=== PATIENT | female | born 1980 | race Caucasian/White ===

== ENCOUNTER 2020-08-09 21:00 | Inpatient (IN) | payer BC ==
[~2020-08-09] VITALS: Ht 177.8 cm; Wt 106.0 kg
[2020-08-09 21:30] VITALS: BP 122/76
[2020-08-09] MEDS ORDERED: RISP1TAB13 PO (21:34)
[2020-08-09] MEDS ORDERED: loperamide 2mg capsule PO PRN (21:35)
[2020-08-09] MEDS ORDERED: acetaminophen 325mg tablet PO PRN ×2 (21:35)
[2020-08-09] MEDS ORDERED: magnesium hydroxide 30ml (MOM) UD suspension PO PRN (21:35)
[2020-08-09] MEDS ORDERED: LORazepam 1 MG tablet PO PRN (21:35)
[2020-08-09] MEDS ORDERED: mag hydrox/Alum hydrox/simeth 30ml oral suspension PO PRN (21:35)
--- NOTE | 2020-08-09 22:09 | NUR ---
Admission note: Pt arrived on [facility] unit on 08/09/20 at 2110 for DTS. Pt attempted to kill herself by overdosing on Wellbutrin because she believed someone was going to take away her children. She believes she is being watched and that her phone and house are bugged. Pt calm and cooperative with admission process, declined a shower.
[2020-08-09] MEDS ORDERED: risperiDONE 0.5mg tablet PO SCH (22:23)
[2020-08-10 07:59] LABS: HEMOGLOBIN A1C 5.1 % (4.5-6.2)
[2020-08-10 08:00] VITALS: BP 114/81
[2020-08-10 08:24] LABS: CHOL/HDL RATIO 3.2 (0.00-4.99); CHOLESTEROL 120 MG/DL (0-200); HDL CHOLESTEROL 38 MG/DL (35-60); LDL CHOLESTEROL 65 MG/DL (50-100); TRIGLYCERIDES 74 MG/DL (20-135)
--- NOTE | 2020-08-10 13:21 | NUR ---
Pt. attended group today. The topic today was Hearing Voices. We discussed what it was like for each pt. that does hear voices and spent most of the session talking about the Coping Skills they utilize to help them distract, relax, problem solve, and care for themselves appropriately. We also did two Mindfulness/Grounding type techniques at the beginning and end of the group so they could learn some new ways to cope. Pt. was very quiet throughout group today. She appeared a bit anxious, she seemed to be alert and oriented X 4. She stayed for the entirety of the group, she engaged in the activities but did not share much. She reported she does not now and has never heard voices. (Per file review/admission note Pt was having paranoia believing that people were after her and trying to take away her children before admit to [facility]) When asked about what coping skills she utilizes to help her cope with mental health issues she reported that she enjoys working out because it makes her feel good. CRUZ - Marialuisa Zhang LCSW
--- NOTE | 2020-08-10 15:43 | NUR ---
Nursing Progress Note: Legal hold: 5150 Client on involuntary status for DTS Report received from nurse with use of SBAR: MARILYN Andre Why are they here: Pt arrived on [facility] unit on 08/09/20 at 2110 for DTS. Pt attempted to kill herself by overdosing on Wellbutrin because she believed someone was going to take away her children. She believes she is being watched and that her phone and house are bugged. Assessment What has happened this shift: Received pt. sleeping in bed at the beginning of the shift, she was awoken to attend breakfast in the Group Room. Afterwards, pt. retreated back to bed where she continued to remain withdrawn throughout most of the day, napping intermittently. 1:1 completed at bedside, pt. presents as cooperative, fatigued, guarded, and withdrawn. Her speech is soft and she responds to direct questions only with a minimal response. Pt. denies any S/I, H/I, A/V/KIM, and no delusional statements made. She appears depressed and states, "I just miss my family." Pt. attends group, however afterward retreats back to bed where she continues to isolate. S/I, H/I: Denies A/VH: Denies, does not appear to be internally preoccupied Sleep: Sleep hours are 6.45, and pt. naps intermittently throughout the day ADL's: Pt. requires some encouragement Group attendance: Yes Were meds taken: N/A Any med S/E: None Mental Status Exam Appearance: Hair and clothing somewhat disheveled r/t laying in bed, however appropriately dressed Eye contact: Fair Behavior: Cooperative, fatigued, guarded, and withdrawn Speech: Soft, responds minimally to direct questions only Mood: Guarded Affect: Blunted Thought process: Poverty of thought Thought Content: Preoccupation with desire to see her family Cognition: A&O X4 Insight: Poor Judgment: Poor Interventions PRN's used: None Therapeutic interventions: Introduced self and established rapport, maintained a safe and supportive environment, ensured contract for safety, provided clear and simple instructions, provided active listening and positive encouragement, and maintained Q 15min safety checks. Restraints/seclusion/emergency medication: N/A Justification of Continued Inpatient Treatment: Pt. requires interruption of current crisis, medication adjustments, and a safe and therapeutic environment.
[2020-08-10 20:14] VITALS: BP 116/71
[2020-08-10] MEDS: PALIPERIDONE 3 MG TAB.ER.24 PO SCH (20:36)
[2020-08-10] MEDS: traZODone 50mg tablet PO PRN (20:41)
--- NOTE | 2020-08-11 03:04 | NUR ---
Nursing Progress Note: Molly Legal hold: 5150 Client on involuntary status for DTS Report received from nurse with use of SBAR: MARILYN Martino Why are they here: Pt arrived on [facility] unit on 08/09/20 at 2110 for DTS. Pt attempted to kill herself by overdosing on Wellbutrin because she believed someone was going to take away her children. She believes she is being watched and that her phone and house are bugged. Assessment What has happened this shift: Received pt. resting in bed, pt calm and cooperative with care. States she misses home and is somewhat bored here. Her speech is soft and she responds to direct questions only with a minimal response. Pt. denies any S/I, H/I, A/V/KIM, and no delusional statements made. S/I, H/I: Denies A/VH: Denies, does not appear to be internally preoccupied Sleep: ADL's: Pt. requires some encouragement Group attendance: Yes Were meds taken: yes Any med S/E: None Mental Status Exam Appearance: Hair and clothing somewhat disheveled, however appropriately dressed Eye contact: Fair Behavior: Cooperative, fatigued, guarded, and withdrawn Speech: Soft, responds minimally to direct questions only Mood: Guarded Affect: Blunted Thought process: Poverty of thought Thought Content: Preoccupation with desire to see her family Cognition: A&O X4 Insight: Poor Judgment: Poor Interventions PRN's used: trazadone Therapeutic interventions: Introduced self and established rapport, maintained a safe and supportive environment, ensured contract for safety, provided clear and simple instructions, provided active listening and positive encouragement, and maintained Q 15min safety checks. Restraints/seclusion/emergency medication: N/A Justification of Continued Inpatient Treatment: Pt. requires interruption of current crisis, medication adjustments, and a safe and therapeutic environment.
[2020-08-11 08:00] VITALS: BP 116/76
[2020-08-11] MEDS: ESCITALOPRAM OXALATE 5 MG TABLET PO SCH (08:00)
--- NOTE | 2020-08-11 14:22 | NUR ---
Pt attended group today. The Group today was about Preventing a Mental Health Relapse. We discussed what their symptomatology is when they start to decompensate, what triggers them and what coping skills they can utilize to keep from relapsing. We also went over a scaling/contract for safety sheet to help them assess where themselves. We ended the group with affirmations that they were able to pick out and take with them to read. Pt. sat at the back of the room and was quiet throughout most of the group. She listened to her peers and kept up with the activity. When asked to shared her thoughts she would jump in and share. Her thought content and thought process appeared WNL. When asked about scaling her symptoms for today she reported today she is at a 2 or 3 acuity level, she reported that right before coming to [facility] she was at a 9 or 10. CRUZ - Marialuisa Zhang LCSW
--- NOTE | 2020-08-11 15:43 | NUR ---
Nursing Progress Note: Legal hold: 5150 Client on involuntary status for DTS Report received from nurse with use of SBAR: MARILYN Andre Why are they here: Pt arrived on [facility] unit on 08/09/20 at 2110 for DTS. Pt attempted to kill herself by overdosing on Wellbutrin because she believed someone was going to take away her children. She believes she is being watched and that her phone and house are bugged. Assessment What has happened this shift: Patient was asleep at change of shift and up for breakfast. Patient took a shower this morning and is clean and neat. Patient states she misses her children. Patient was overheard in her room speaking to her roommate when RN was giving medication. Patient states "I totally believe you!" as roommate says the same thing to patient. Patient does not want to talk about what happened with this RN. Patient apparently believes her delusions. Patient isolates except with her new roommate. Patient gets up for snack and did go to group this morning. Patient started Lexapro 5 mg this morning. S/I, H/I: Denies A/VH: Denies Sleep: napped throughout the day. ADL's: Independent. Took a shower today Group attendance: Yes Were meds taken: yes Any med S/E: None Mental Status Exam Appearance: Clean and neat in green scrubs Eye contact: Fair Behavior: Cooperative, guarded, and withdrawn Speech: Soft, responds minimally to questions Mood: Guarded Affect: Flat Thought process: Delusional Thought Content: Missing her family Cognition: A&O X4 Insight: Poor Judgment: Poor Interventions PRN's used: None Therapeutic interventions: Introduced self and established rapport, maintained a safe and supportive environment, ensured contract for safety, provided clear and simple instructions, provided active listening and positive encouragement, and maintained Q 15min safety checks. Restraints/seclusion/emergency medication: N/A Justification of Continued Inpatient Treatment: Pt. requires interruption of current crisis, medication adjustments, and a safe and therapeutic environment.
[2020-08-11 20:00] VITALS: BP 108/60
[2020-08-11] MEDS: PALIPERIDONE 3 MG TAB.ER.24 PO SCH (20:37)
[2020-08-11] MEDS: traZODone 50mg tablet PO PRN (20:37)
--- NOTE | 2020-08-12 01:58 | NUR ---
Nursing Progress Note: Molly Legal hold: 5150 Client on involuntary status for DTS Report received from nurse with use of SBAR: MARILYN Hayward Why are they here: Pt arrived on [facility] unit on 08/09/20 at 2110 for DTS. Pt attempted to kill herself by overdosing on Wellbutrin because she believed someone was going to take away her children. She believes she is being watched and that her phone and house are bugged. Assessment What has happened this shift: Patient lying down in bed reading a book while chatting with roommate at change of shift. Pt pleasant and cooperative with care. Pt states she is doing well, denies MH symptoms. Pt was seen in community room having snack talking with roommate, prescribed medication taken without any issue. S/I, H/I: Denies A/VH: Denies Sleep: ADL's: Independent Group attendance: Were meds taken: yes Any med S/E: None Mental Status Exam Appearance: Clean and neat in green scrubs Eye contact: Fair Behavior: Cooperative, guarded, and withdrawn Speech: Soft, responds minimally to questions Mood: Guarded Affect: Flat Thought process: Delusional Thought Content: Missing her family Cognition: A&O X4 Insight: Poor Judgment: Poor Interventions PRN's used: None Therapeutic interventions: Introduced self and established rapport, maintained a safe and supportive environment, ensured contract for safety, provided clear and simple instructions, provided active listening and positive encouragement, and maintained Q 15min safety checks. Restraints/seclusion/emergency medication: N/A Justification of Continued Inpatient Treatment: Pt. requires interruption of current crisis, medication adjustments, and a safe and therapeutic environment.
[2020-08-12] MEDS: ESCITALOPRAM OXALATE 5 MG TABLET PO SCH (08:00)
[2020-08-12 08:34] VITALS: BP 107/56
--- NOTE | 2020-08-12 13:35 | NUR ---
Nursing Progress Note: Legal hold: 5150 hold up this evening Client on involuntary status for DTS Report received from nurse with use of SBAR: Wen Mock RN Why are they here: Pt arrived on [facility] unit on 08/09/20 at 2110 for DTS. Pt attempted to kill herself by overdosing on Wellbutrin because she believed someone was going to take away her children. She believes she is being watched and that her phone and house are bugged. Assessment What has happened this shift: Patient was resting in her room when this medical writer was allowed to do a bedside 1:1 assessment, patients only complaint today is that she misses her bed and her back is sore from sleeping wrong. Patient states that she is very sorry that she scared her family by overdosing on medication, "I will not do that again", although patient states the she OD because she can't live her life without her children, Molly said that the person from the internet was sending someone to either take her children or kill them. This medical writer tried some reality testing, patient is fixed on her delusions. Patient had a visit from her and mother in law, each had a 15 min visit. Patient appears to have family support. S/I, H/I: Denies A/VH: Denies Sleep: napped throughout the day. NOC 6.5 ADL's: Independent. Took a shower today Group attendance: Yes Were meds taken: yes Any med S/E: None Mental Status Exam Appearance: Clean and neat in green scrubs Eye contact: Fair Behavior: Cooperative, guarded, and withdrawn Speech: Soft, responds minimally to questions Mood: Guarded Affect: Flat Thought process: Delusional Thought Content: Missing her family and her bed Cognition: A&O X4 Insight: Poor Judgment: Poor Interventions PRN's used: None Therapeutic interventions: Introduced self and established rapport, maintained a safe and supportive environment, ensured contract for safety, provided clear and simple instructions, provided active listening and positive encouragement, and maintained Q 15min safety checks. Restraints/seclusion/emergency medication: N/A Justification of Continued Inpatient Treatment: Patient continues to believe that her house is bugged and that a drone flew in her house and tapped her phones. "I know it sound crazy but it is real". Patient needs more time on new medication in order to plan for a safe discharge. Patient most recently had a sever suicide attempt by overdosing on her medication.
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
--- NOTE | 2020-08-12 14:42 | NUR ---
Pt. attended [employer] today. She was very quiet but interacted appropriately with others and appeared to enjoy the game. CRUZ - Marialuisa Zhang LCSW
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
[2020-08-12] MEDS ORDERED: paliperidone palmitate inj 234 MG/1.5 ML SYRINGE IM ONE (16:45)
[2020-08-12] MEDS ORDERED: paliperidone palmitate 156 mg/ml inj.**IM only IM ONE (19:40)
[2020-08-12] MEDS ORDERED: benztropine 1mg tablet PO PRN (19:50)
[2020-08-12 20:26] VITALS: BP 112/68
--- NOTE | 2020-08-13 00:47 | NUR ---
Nursing Progress Note: Legal hold: 5150 hold up this evening Client on involuntary status for DTS Report received from nurse with use of SBAR: MARILYN Hayward Why are they here: Pt arrived on [facility] unit on 08/09/20 at 2110 for DTS. Pt attempted to kill herself by overdosing on Wellbutrin because she believed someone was going to take away her children. She believes she is being watched and that her phone and house are bugged. Assessment What has happened this shift: Pt mostly isolated to her room during the evening shift, but did come out for snack for a little while. Pt was reading in bed when approached for 1:1. Pt was friendly and cooperative for all assessments and care and did not make any delusional statements. Pt was upset that she did not get to go home today but was ok with the decision. Pt is now denying being suicidal and stated, "I'll never make that mistake again." Pt was given her Invega shot. S/I, H/I: Denies A/VH: Denies Sleep: see sleep assessment ADL's: Independent. Took a shower today Group attendance: n/a Were meds taken: yes Any med S/E: None Mental Status Exam Appearance: Clean and neat in green scrubs Eye contact: good Behavior: Cooperative, friendly Speech: Soft, responds minimally to questions Mood: Guarded Affect: Flat Thought process: linear Thought Content: wanting to go home Cognition: A&O X4 Insight: Poor Judgment: Poor Interventions PRN's used: None Therapeutic interventions: Introduced self and established rapport, maintained a safe and supportive environment, ensured contract for safety, provided clear and simple instructions, provided active listening and positive encouragement, and maintained Q 15min safety checks. Restraints/seclusion/emergency medication: N/A Justification of Continued Inpatient Treatment: Patient continues to believe that her house is bugged and that a drone flew in her house and tapped her phones. "I know it sound crazy but it is real". Patient needs more time on new medication in order to plan for a safe discharge. Patient most recently had a sever suicide attempt by overdosing on her medication.
[2020-08-13] MEDS: ESCITALOPRAM OXALATE 5 MG TABLET PO SCH (07:47)
[2020-08-13 08:00] VITALS: BP 107/62
--- NOTE | 2020-08-13 16:16 | NUR ---
Nursing Progress Note: Legal hold: 5250 Client on involuntary status for DTS Report received from nurse with use of SBAR: Dominick RN Why are they here: Pt arrived on [facility] unit on 08/09/20 at 2110 for DTS. Pt attempted to kill herself by overdosing on Wellbutrin because she believed someone was going to take away her children. She believes she is being watched and that her phone and house are bugged. Assessment What has happened this shift: Patient was resting in her room when this caption writer was allowed to do a bedside 1:1 assessment, patient isolated to her room all dy, she has finished one book and is working on another. Patient did come out of her room for meals and snacks. "I really want to go home tomorrow, do you think I will be able to?" This caption writer told patient that each day she is evaluated for her MH hold by the team and that would be decided after her visit with the provider. Patient affect is bright today and she accepted the news in regards to her hold. Patient visited today and appeared to have had a good visit. S/I, H/I: Denies A/VH: Denies Sleep: NOC 7.0 ADL's: Independent Group attendance: Yes Were meds taken: yes Any med S/E: None Mental Status Exam Appearance: Clean and neat in green scrubs Eye contact: good Behavior: Cooperative Speech: Soft, responds minimally to questions Mood: Guarded Affect: brighter today Thought process: wanting to go home and be with family Thought Content: forward thinking Cognition: A&O X4 Insight: fair Judgment: Poor Interventions PRN's used: None Therapeutic interventions: Introduced self and established rapport, maintained a safe and supportive environment, ensured contract for safety, provided clear and simple instructions, provided active listening and positive encouragement, and maintained Q 15min safety checks. Restraints/seclusion/emergency medication: N/A Justification of Continued Inpatient Molly received DIAZ last night, patient seemed to have tolerated it well, if no sales and service change leader night in symptoms or SE the plan is to discharge patient to her tomorrow per provider.
[2020-08-13 20:27] VITALS: BP 93/43
--- NOTE | 2020-08-14 05:18 | NUR ---
Nursing Progress Note: Legal hold: 5150 hold up this evening Client on involuntary status for DTS Report received from nurse with use of SBAR: MARILYN Hayward Why are they here: Pt arrived on [facility] unit on 08/09/20 at 2110 for DTS. Pt attempted to kill herself by overdosing on Wellbutrin because she believed someone was going to take away her children. She believes she is being watched and that her phone and house are bugged. Assessment What has happened this shift: Pt mostly isolates to her room but was out for snack and was socializing with patients at that time. Pt is friendly and cooperative for all assessments and care. Pt is happy to be going home, she has not made any delusional statements and denies any suicidal ideation. Pt and her roommate get along well and chat quite a bit. S/I, H/I: Denies A/VH: Denies Sleep: see sleep assessment ADL's: Independent. Took a shower today Group attendance: n/a Were meds taken: yes Any med S/E: None Mental Status Exam Appearance: Clean and neat in green scrubs Eye contact: good Behavior: Cooperative, friendly Speech: Soft, responds minimally to questions Mood: Guarded Affect: Flat Thought process: linear Thought Content: wanting to go home Cognition: A&O X4 Insight: Poor Judgment: Poor Interventions PRN's used: None Therapeutic interventions: Introduced self and established rapport, maintained a safe and supportive environment, ensured contract for safety, provided clear and simple instructions, provided active listening and positive encouragement, and maintained Q 15min safety checks. Restraints/seclusion/emergency medication: N/A Justification of Continued Inpatient Treatment: Patient continues to believe that her house is bugged and that a drone flew in her house and tapped her phones. "I know it sound crazy but it is real". Patient needs more time on new medication in order to plan for a safe discharge. Patient most recently had a sever suicide attempt by overdosing on her medication.
[2020-08-14 08:00] VITALS: BP 91/50
[2020-08-14] MEDS ORDERED: ESCITALOPRAM OXALATE 5 MG TABLET PO SCH (08:00)
--- NOTE | 2020-08-14 09:03 | NUR ---
Initial: Pt admit DX psychosis NOS on 5250 hold per EMR. Pt placed on vegan diet per reported preference in EMR; KISHORE d/w RN regarding B12 supplementation if MD agreeable. PO mostly ~100% avg diet likely meeting minimum nutrient needs. LBM 08/12. Will continue to monitor. Rec: 1. continue vegan diet per MD 2. B12 supplementation w/ vegan hx if MD agreeable 3. routine bowel care 4. weekly wts Addendum: 08/14/20 at [address] Amended: Links added.
[2020-08-14] MEDS ORDERED: BENZ1TAB7 PO (12:59)
[2020-08-14] MEDS ORDERED: TRAZ-251 PO (12:59)
[2020-08-14] MEDS ORDERED: PALI156D IM (12:59)
[2020-08-14] MEDS ORDERED: ESCI5TAB PO (13:01)
== END 2020-08-14 13:25 | disposition home or self-care (01) | DRG 885 ==
LOC: ADULT MH 21:03
PROVIDERS: ADMIT Psychiatry & Neurology Psychiatry; ATTEND Psychiatry & Neurology Psychiatry
DX: F29 Unspecified psychosis not due to a substance or known physiological condition (principal); T43.292A Poisoning by other antidepressants, intentional self-harm, initial encounter; E66.3 Overweight; F32.9 Major depressive disorder, single episode, unspecified; G24.9 Dystonia, unspecified; Z82.79 Family history of other congenital malformations, deformations and chromosomal abnormalities; Y92.89 Other specified places as the place of occurrence of the external cause; Z90.49 Acquired absence of other specified parts of digestive tract; Z68.33 Body mass index [BMI] 33.0-33.9, adult
CPT/HCPCS: 36415; 80061; 83036; 87081; 93005